=== PATIENT | male | born 1955 | race Caucasian/White ===

== ENCOUNTER 2017-02-06 12:37 | Outpatient (CLI) | payer OTHER ==
[~2017-02-06] VITALS: Ht 175.3 cm; Wt 83.9 kg
[~2017-02-06 12:37] MED LIST: DILT240C54 PO; OMEP20CA12 PO; OMEP20TA7 PO; PANT40TA2 PO; SERT50TA2 PO; SIMV40TA4 PO; SUCR1TAB36 PO; TRIA1CAP4 PO
[2017-02-06] MEDS ORDERED: TRIA1CAP4 PO (14:37)
[2017-02-06] MEDS ORDERED: DILT240C53 PO (14:37)
[2017-02-06] MEDS ORDERED: OMEP40CA36 PO (14:37)
[2017-02-07] MEDS ORDERED: DOCU-143 PO (15:32)
[2017-02-07] MEDS ORDERED: ACHD5005 PO (15:32)
== END 2017-02-06 14:39 ==
LOC: PREOP 12:37
PROVIDERS: ATTEND Surgery
DX: Z01.818 Encounter for other preprocedural examination (principal); L05.91 Pilonidal cyst without abscess

== ENCOUNTER 2017-02-07 11:20 | Day surgery (SDC) | payer OTHER ==
[~2017-02-07] VITALS: Ht 175.3 cm; Wt 83.9 kg
[~2017-02-07 11:20] MED LIST changes: +DILT240C53 PO; +OMEP40CA36 PO
[2017-02-07] MEDS ORDERED: CLINDAMYCIN INJECTION 600 MG in NS (IVPB) 50 ML IV ONE (11:45)
[2017-02-07] MEDS ORDERED: CLINDAMYCIN 600 MG/4ML (CLEOCIN) VIAL ONE (11:50)
[2017-02-07] MEDS ORDERED: NS (IVPB) 50 ML ONE (11:51)
[2017-02-07] MEDS ORDERED: FAMOTIDINE 20MG/2ML IV (PEPCID) IVP ONE (12:15)
[2017-02-07] MEDS ORDERED: MIDAZOLAM 2 MG/2 ML (VERSED) VIAL IVP ONE (12:15)
[2017-02-07] MEDS ORDERED: LIDOCAINE 1% INJ 20 ML (XYLOCAINE) VIAL ONE (14:11)
[2017-02-07] MEDS ORDERED: BUPIVACAINE 0.5% 30 ML (SENSORCAINE) VIAL ONE (14:11)
[2017-02-07] MEDS ORDERED: LIDOCAINE PF 2% 5 ML (XYLOCAINE) VIAL ONE (14:29)
[2017-02-07] MEDS ORDERED: SEVOFLURANE (ULTANE) 15 ML INHAL SOLN ONE ×2 (14:29→16:17)
[2017-02-07] MEDS ORDERED: proPOfol 200 MG/20 ML (DIPRIVAN) VIAL IV ONE (14:29)
[2017-02-07] MEDS ORDERED: ONDANSETRON 4 MG/2 ML (SDV) Z0FRAN ONE (14:29)
[2017-02-07] MEDS ORDERED: fentaNYL INJECTION 100 MCG/2 ML AMP ONE (14:30)
[2017-02-07] MEDS ORDERED: MIDAZOLAM 2 MG/2 ML (VERSED) VIAL ONE (14:30)
--- NOTE | 2017-02-07 14:35 | Progress Note-Pre Operative ---
Pre-Operative Progress Note H&P Reviewed The H&P was reviewed, patient examined and no changes noted. Date Seen by Provider: Feb 07, 2017 Time Seen by Provider: 14:34 Date H&P Reviewed: Feb 07, 2017 Time H&P Reviewed: 14:34 Pre-Operative Diagnosis: cyst pilonidal DIMITRIOS PRICE DO Feb 07, 2017 14:35
[2017-02-07] MEDS: LACTATED RINGERS 1,000 ML IV PRN ×2 (14:39→15:46)
--- NOTE | 2017-02-07 15:31 | Progress Note-Post Operative ---
Post-Operative Progess Note Surgeon (s)/Enterprise Integration Developer (s) Surgeon DIMITRIOS PRICE DO Enterprise Integration Developer: na Pre-Operative Diagnosis cyst pilonidal Post-Operative Diagnosis same Procedure & Operative Findings Date of Procedure 02/07/17 Procedure Performed/Findings excision pilonidal cyst 3.2x2.5x2 cm Anesthesia Type gen Estimated Blood Loss Estimated blood loss (mL): minimal Specimens/Packing Specimens Removed cyst DIMITRIOS PRICE DO Feb 07, 2017 15:31
[2017-02-07] MEDS ORDERED: DOCU-143 PO (15:32)
[2017-02-07] MEDS ORDERED: ACHD5005 PO (15:32)
--- NOTE | 2017-02-07 15:35 | Discharge Inst-Simple/Standard ---
Discharge Inst-Standard Discharge Medications New, Converted or Re-Newed RX: RX on Chart Patient Instructions/Follow Up Plan of Care/Instructions/FU: 12-14 days for suture removal Activity as Tolerated: No Discharge Diet: Regular Diet Other Inst to Patient Follow up Appt: Make appointment for 12-14 days Instructions: No lifting greater than 10 pounds. No strenuous activity. May shower in 24 hours, no tub bath or soaking. Use incentive spirometer at home as directed. No Smoking Skin/Wound Care: Keep area clean and dry. Remove dressing daily. Symptoms to Report: Appetite Changes, Extremity Discoloration, Numbness/Tingling, Swelling Increased , Bleeding Excessive, Eyesight Changes, Pain Increased, Urine Color Change, Constipation(Persistent), Fever over 101 degree F, Pain/Pressure in chest, Urinating Difficulty, Cough Up/Vomit Blood, Heart Beat Irreg/Pounding, Pain/ Pressure in jaw, Vaginal Bleeding Increase, Cramps in feet or legs, Lightheadedness, Pain/Pressure in shoulder, Diarrhea(Persistent), Memory Changes Suddenly, Questions/Concerns, Weight gain consecutive days, Dizziness/ Fainting, Nausea/Vomiting, Shortness of Breath, Weight gain over 2 pounds If questions or concerns contact your physician Or seek help at emergency department. DIMITRIOS PRICE DO Feb 07, 2017 15:35
[2017-02-07] MEDS ORDERED: HYDROcodone/APAP 5 MG/325 MG (LORTAB) TAB PO PRN (15:45)
[2017-02-07] MEDS ORDERED: morphine INJ 10 MG/ML 1ML (SYR OR VIAL) IVP PRN (16:00)
[2017-02-07] MEDS ORDERED: ONDANSETRON 4 MG/2 ML (SDV) Z0FRAN IVP PRN (16:00)
[2017-02-07] MEDS ORDERED: GLYCOPYRROLATE 0.2 MG/ML (ROBINUL) 2 ML VIAL ONE (16:17)
[2017-02-07] MEDS ORDERED: DEXAMETHASONE 10 MG/ML (DECADRON) 1 ML VIAL ONE (16:17)
[2017-02-07] MEDS ORDERED: NEOSTIGMINE (BLOXIVERZ ) 1 MG/1ML 10 ML VIAL ONE (16:17)
[2017-02-07 16:35] VITALS: BP 166/107
[2017-02-07 17:05] VITALS: BP 157/98
[2017-02-07 17:20] VITALS: BP 157/98
--- NOTE | 2017-02-07 23:07 | OPERATIVE REPORT ---
DATE OF SERVICE: 02/07/2017 PREOPERATIVE DIAGNOSIS: Pilonidal cyst. POSTOPERATIVE DIAGNOSIS: Pilonidal cyst. PROCEDURE: Excision of pilonidal cyst 3.2 x 2.5 x 2 cm with layered closure. SURGEON: Dimitrios Rosario DO. ANESTHESIA: General. ESTIMATED BLOOD LOSS: Minimal. COMPLICATIONS: None. INDICATIONS: The patient is a 61-year-old male with a pilonidal cyst. This is causing some pain and discomfort at times. Also, has drained several times previously. He understands risks and benefits of procedure and wished to proceed with procedure. Consent was signed and on the chart. DESCRIPTION OF PROCEDURE: The patient was taken to the operating suite. He was prepped and draped in sterile fashion in the prone position. An incision was made just to the left of midline and the cyst was dissected around with cautery dissection. Anteriorly, a small part was ruptured with dissection, but the entirety of it was removed. This was taken down to the sacral fascia and removed. No other part of the cyst was visualized within the incision or cavity or wound. The wound was then irrigated with copious amounts of irrigation. Hemostasis had been achieved. The deep subcutaneous tissues were then reapproximated using 3-0 Vicryl. The subcutaneous tissues were reapproximated using 3-0 Vicryl. Skin was then closed with vertical mattress 2-0 Prolenes. The area was then washed and dried, sterile bandages were applied. The patient tolerated the procedure well without any complications and was taken to recovery room in stable condition. Job ID: [id number] DocumentID: [id number] Dictated Date: 02/07/2017 17:16:24 Performance Solutions Specialist Date: 02/07/2017 23:06:50 Dictated By: DIMITRIOS ROSARIO DO
== END 2017-02-07 17:25 | disposition home or self-care (01) ==
LOC: SDC 11:20
PROVIDERS: ATTEND Surgery
DX: L05.91 Pilonidal cyst without abscess (principal); I10 Essential (primary) hypertension; G43.909 Migraine, unspecified, not intractable, without status migrainosus; K21.9 Gastro-esophageal reflux disease without esophagitis; Z79.899 Other long term (current) drug therapy; Z87.891 Personal history of nicotine dependence
CPT/HCPCS: 87081

== ENCOUNTER → 2018-01-27 | Outpatient (CLI) | payer OTHER ==
[~2018-01-27] MED LIST changes: +ACHD5005 PO; +CATHETER FLUSH 10 ML SYR IV PRN; +DOCU-143 PO; +REGADENOSON 0.4 MG/5 ML SYR (LEXISCAN) IV ONE
[2018-01-27 08:15] VITALS: BP 162/109
[2018-01-27 08:18] VITALS: BP 154/92
--- NOTE | 2018-01-27 13:05 | STRESS TEST ---
DATE OF SERVICE: 01/27/2018 NUCLEAR MYOVIEW REPORT REFERRING PHYSICIAN: Dr. Cook. In summary, the patient was injected with 10.7 mCi of technetium-99 Myoview and the resting images were obtained. Then, the patient received a 31.4 mCi of technetium-99 with peak stress level and the stress images were obtained. The stress and resting images were compared in the short axis, horizontal long axis, and vertical long axis views. Review of the images showed diaphragmatic attenuation with mild decreased uptake at the mid to apical inferior wall and inferolateral wall with subtle reversibility probably due to the extracardiac attenuation. SSS is 5, SDS 4, TID value 1.0. On the gated images, the left ventricle appeared to be in normal size with mild diffuse left ventricular hypokinesia, calculated ejection fraction 44%. CONCLUSION: 1. Diaphragmatic attenuation with mild decreased uptake at the mid to apical inferior wall and inferolateral wall with mild reversibility, probably secondary to the extracardiac attenuation. 2. Normal left ventricular size with mild diffuse left ventricular hypokinesia, calculated ejection fraction 44%. Job ID: [id number] DocumentID: [id number] Dictated Date: 01/27/2018 12:42:37 Cash Applications Clerk Date: 01/27/2018 13:05:08 Dictated By: AL MIGUEL MD
== END ==
LOC: CARD 06:46
PROVIDERS: ATTEND Internal Medicine
DX: R07.9 Chest pain, unspecified (principal); I10 Essential (primary) hypertension
CPT/HCPCS: 78452; 93017

== ENCOUNTER → 2018-03-07 | Outpatient (CLI) | payer OTHER ==
[~2018-03-07] MED LIST changes: -CATHETER FLUSH 10 ML SYR IV PRN; -REGADENOSON 0.4 MG/5 ML SYR (LEXISCAN) IV ONE
--- NOTE | 2018-03-07 13:37 | Diagnostic Imaging Report ---
CLINICAL INDICATION: Patient complains of back and neck pain mostly on right side. Pain is getting worse. EXAM: X-ray of the thoracic spine, three views including swimmer's view. COMPARISON: CT scan of the abdomen and pelvis dated 11/08/2010. FINDINGS: Limited visualization of the upper thoracic spine due to overlapping bone and soft tissue. Thoracic spine shows no acute fracture or dislocation. Intervertebral disc heights and vertebral body heights are within normal limits. There is no significant change to the mild dextrorotoscoliosis of the thoracolumbar spine. This is best seen on the pneumatic tool repairer image of the comparison CT scan. IMPRESSION: 1: There is no acute thoracic spine fracture or dislocation. 2: Again seen mild dextrorotoscoliosis of the thoracolumbar spine. Dictated on workstation # [id number]
--- NOTE | 2018-03-07 15:16 | Diagnostic Imaging Report ---
CLINICAL INDICATION: Patient complains of back and neck pain mostly on the right side. Pain appears to be getting worse. EXAM: X-ray of the cervical spine, three views including odontoid views. COMPARISON: X-ray of the cervical spine dated 07/16/2010. FINDINGS: There is no acute fracture or dislocation. There is no significant change to the small spurs anteriorly at the C5-C6 levels. The intervertebral disc heights are well maintained. There is no prevertebral soft tissue swelling. Odontoid views are unremarkable. IMPRESSION: Stable minimal cervical spine degenerative disease with minimal anterior spurring at the C5-C6 level. Dictated on workstation # [id number]
== END ==
LOC: RAD 09:59
PROVIDERS: ATTEND Internal Medicine
DX: M41.85 Other forms of scoliosis, thoracolumbar region (principal); M54.2 Cervicalgia
CPT/HCPCS: 72040; 72072

== ENCOUNTER 2020-09-21 05:28 | Outpatient (RCR) | payer OTHER ==
[~2020-09-21] VITALS: Ht 175.3 cm; Wt 79.5 kg
[~2020-09-21 05:28] MED LIST changes: +LOSA1TAB23 PO; -OMEP40CA36 PO; +OMEP40CA6 PO; +SIMV40TA25 PO; -SIMV40TA4 PO
[2020-09-22] MEDS ORDERED: ACHD5005 PO (12:30)
== END 2020-09-21 08:31 | disposition home or self-care (01) ==
LOC: PREOP 05:28
PROVIDERS: ATTEND Otolaryngology Otolaryngology/Facial Plastic Surgery
DX: Z01.812 Encounter for preprocedural laboratory examination (principal); Z01.810 Encounter for preprocedural cardiovascular examination; Z01.811 Encounter for preprocedural respiratory examination; J38.3 Other diseases of vocal cords; Z20.822 Contact with and (suspected) exposure to COVID-19
CPT/HCPCS: 87635

== ENCOUNTER 2020-09-22 06:44 | Day surgery (SDC) | payer OTHER ==
[~2020-09-22] VITALS: Ht 175.3 cm; Wt 79.5 kg
[2020-09-22] VITALS (11 sets, daily range): BP systolic 133–166; BP diastolic 88–108
[2020-09-22] MEDS ORDERED: LACTATED RINGERS 1,000 ML IV PRN (07:00)
--- NOTE | 2020-09-22 07:04 | Progress Note-Pre Operative ---
Pre-Operative Progress Note H&P Reviewed The H&P was reviewed, patient examined and no changes noted. 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
[2020-09-22 07:32] LABS: BASOPHILS # (AUTO) 0.1 10^3/uL (0.0-0.1); BASOPHILS % (AUTO) 1 % (0-10); EOSINOPHILS # (AUTO) 0.1 10^3/uL (0.0-0.3); EOSINOPHILS % (AUTO) 1 % (0-10); HEMATOCRIT 46 % (40-54); LYMPHOCYTES # (AUTO) 1.6 10^3/uL (1.0-4.0); LYMPHOCYTES % (AUTO) 23 % (12-44); MEAN CORPUSCULAR HEMOGLOBIN 31 pg (25-34); MEAN CORPUSCULAR HGB CONC 35 g/dL (32-36); MEAN CORPUSCULAR VOLUME 88 fL (80-99); MEAN PLATELET VOLUME 10.3 fL (9.0-12.2); MONOCYTES # (AUTO) 0.6 10^3/uL (0.0-1.0); MONOCYTES % (AUTO) 9 % (0-12); NEUTROPHILS # (AUTO) 4.5 10^3/uL (1.8-7.8); NEUTROPHILS % (AUTO) 65 % (42-75); PLATELET COUNT 290 10^3/uL (130-400); WHITE BLOOD COUNT 6.9 10^3/uL (4.3-11.0)
--- NOTE | 2020-09-22 07:40 | Diagnostic Imaging Report ---
INDICATION: Preoperative evaluation PA and lateral views of the chest are obtained. There is no previous study available at this time for comparison. Heart size and pulmonary vascularity are within normal limits. Linear density in the right lung base likely represents atelectasis or scarring. There is no evidence of consolidation or significant pleural fluid. IMPRESSION: Minimal basilar atelectasis or scarring without other evidence for acute abnormality. Dictated by: Dictated on workstation # [id number]
[2020-09-22 07:55] LABS: CALCIUM 9.8 MG/DL (8.5-10.1); CREATININE SERUM 0.98 MG/DL (0.60-1.30); POTASSIUM 3.2 MMOL/L (3.6-5.0)
[2020-09-22] MEDS ORDERED: proPOfol 200 MG/20 ML (DIPRIVAN) VIAL IV ONE (10:20)
[2020-09-22] MEDS ORDERED: ROCURONIUM 10 MG/ML 5 ML SYRINGE IV ONE (10:20)
[2020-09-22] MEDS ORDERED: ONDANSETRON 4 MG/2 ML (SDV) Z0FRAN ONE (10:20)
[2020-09-22] MEDS ORDERED: fentaNYL INJ 100 MCG/2 ML AMP ONE (10:20)
[2020-09-22] MEDS ORDERED: MIDAZOLAM 2 MG/2 ML (VERSED) VIAL ONE (10:20)
[2020-09-22] MEDS ORDERED: LIDOCAINE PF 2% 5 ML (XYLOCAINE) VIAL ONE ×2 (10:20→10:28)
[2020-09-22] MEDS ORDERED: SEVOFLURANE (ULTANE) 15 ML INHAL SOLN ONE (10:20)
[2020-09-22] MEDS ORDERED: LIDOCAINE/EPI 1%-1:100,000 (XYLOCAINE) 20ML ONE (10:30)
--- NOTE | 2020-09-22 11:09 | Progress Note-Post Operative ---
Post-Operative Progess Note Surgeon (s)/Professional Caster (s) Surgeon DANNY BURGESS MD Professional Caster n/a Pre-Operative Diagnosis Leukoplakia of Right Vocal Cord Post-Operative Diagnosis same Post-Op Procedure Note Date of Procedure: Sep 22, 2020 Name of Procedure Performed: Direct Laryngosocpy with Removal of Right Vocal Cord Lesion Description & Findings Description and Findings: n/a Anesthesia Type get Estimated Blood Loss minimal Packing none. Specimen(s) collected/removed right vocal cord lesion DANNY BURGESS MD Sep 22, 2020 11:09
[2020-09-22] MEDS ORDERED: PROMETHAZINE INJ 25 MG/ML (PHENERGAN) AMP IV PRN (11:15)
[2020-09-22] MEDS ORDERED: HYDROcodone/APAP 5 MG/325 MG (LORTAB) TAB PO PRN (11:15)
[2020-09-22] MEDS ORDERED: SUGAMMADEX 500 MG/5 ML VIAL (BRIDION) IV ONE (11:30)
[2020-09-22] MEDS ORDERED: ONDANSETRON 4 MG/2 ML (SDV) Z0FRAN IVP PRN (11:45)
[2020-09-22] MEDS ORDERED: HYDROmorphone 2 MG/ML VIAL (DILAUDID) IV ONE (11:45)
[2020-09-22] MEDS ORDERED: ACHD5005 PO (12:30)
--- NOTE | 2020-09-22 13:42 | Anesthesia-General Post-Op ---
General Patient Condition Mental Status/LOC: Same as Preop Cardiovascular: Satisfactory Nausea/Vomiting: Absent Respiratory: Satisfactory Pain: Controlled Complications: Absent Post Op Complications Complications None Follow Up Care/Instructions Patient Instructions None needed. Anesthesia/Patient Condition Patient Condition Patient is doing well, no complaints, stable vital signs, no apparent adverse anesthesia problems. No complications reported per nursing. [place] [facility] [place] JES BENTON CRNA Sep 22, 2020 13:42
== END 2020-09-22 13:45 | disposition home or self-care (01) ==
LOC: SDC 06:44
PROVIDERS: ATTEND Otolaryngology Otolaryngology/Facial Plastic Surgery
DX: J38.7 Other diseases of larynx (principal); I10 Essential (primary) hypertension; K21.9 Gastro-esophageal reflux disease without esophagitis; Z79.899 Other long term (current) drug therapy
CPT/HCPCS: 36415; 71046; 80048; 85025; 87081; 93005